=== PATIENT | female | born 1965 | race American Indian/Alaskan Native ===

== ENCOUNTER 2017-01-20 05:31 | Day surgery (SDC) | payer OTHER ==
[2017-01-20] MEDS ORDERED: Dextrose 5%-0.45% NaCl 1,000 ML IV SCH (06:00)
[2017-01-20] MEDS ORDERED: Sodium Chloride 0.9% 10 ML Syringe FLUSH PRN (06:00)
[2017-01-20] MEDS ORDERED: fentaNYL 100 MCG/2 ML SDV ONE (06:14)
[2017-01-20] MEDS ORDERED: Midazolam 1 MG/ML 2 ML SDV ONE (06:14)
[2017-01-20] MEDS ORDERED: Midazolam 1 MG/ML 2 ML SDV IV ONE ×7 (06:36→14:30)
[2017-01-20] MEDS ORDERED: fentaNYL 100 MCG/2 ML SDV IV ONE ×3 (06:36→14:30)
[2017-01-20 09:10] VITALS: BP 127/75
--- NOTE | 2017-01-20 11:58 | OR ---
DATE: 01/20/2017 PROCEDURE: Total colonoscopy. INSTRUMENT USED: CF-H180 AL Olympus video colonoscope. PREMEDICATIONS: Fentanyl 100 mcg intravenous, Versed 4 mg intravenous, nasal O2 cannula. 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 INDICATION: The patient with unexplained Hemoccult positive stools. Colonoscopic examination is done for detection of any polypoid lesions and removal, endoscopic hemostasis therapy if needed. DESCRIPTION OF PROCEDURE: Initial rectal exam was unremarkable. Rigid anoscopy was normal. The colonoscope was passed with ease. Scattered diverticula were noted in the distal left colon along with some deformity. The scope was passed with ease up to the ileocecal area. Photographs were taken of the normal-appearing cecum identified by appendiceal orifice and double-bulged ileocecal folds. No bleeding was noted from any of the visualized areas at the commencement of the examination. No stricture. No vascular ectasia. No large isolated ulcerations seen. No evidence of diffuse inflammatory bowel disease in the form of friability, contact bleeding, or ulcerations. No polyp or tumor mass identified. Probing the proximal sides of folds and flexures, using adequate distention clearing up the stool material, withdrawal of the scope was made. Cecum to rectum time was over 6 minutes. No bleeding was noted from any of the visualized areas at the completion of examination. IMPRESSION: Diverticulosis. The patient tolerated the procedure well. [facility] /[id number]
--- NOTE | 2017-01-20 14:01 | LETTER ---
01/20/2017 JEWELS Bianchi [facility] [address] [place] [address] RE: YENNY CLEMENTE : 1965 Dear Ms. Ramos: Yenny Nunez Vlad had colonoscopic examination done this morning and she tolerated the procedure well. I herewith send a copy of the endoscopy note and photographs for your review. Thank you. Sincerely, [facility] /[id number]
== END 2017-01-20 08:45 | disposition home or self-care (01) ==
LOC: DL.ENDO 05:31
PROVIDERS: ATTEND Internal Medicine Gastroenterology
DX: K57.30 Diverticulosis of large intestine without perforation or abscess without bleeding (principal); I10 Essential (primary) hypertension; E78.5 Hyperlipidemia, unspecified; E66.9 Obesity, unspecified; Z98.890 Other specified postprocedural states; Z91.09 Other allergy status, other than to drugs and biological substances; Z79.82 Long term (current) use of aspirin; Z79.899 Other long term (current) drug therapy
CPT/HCPCS: 45378; J2250; J3010; J7042

== ENCOUNTER 2018-11-19 07:24 | Day surgery (SDC) | payer BC, OTHER ==
[~2018-11-19 07:24] MED LIST: Lactated Ringers 1,000 ML IV SCH; Lidocaine 1% 30 ML SDV INJECT ONE; Sodium Chloride 0.9% 10 ML Syringe FLUSH PRN
[2018-11-19] MEDS ORDERED: Dexamethasone 4 MG/ML SDV IV ONE (07:25)
[2018-11-19] MEDS ORDERED: Propofol 200 MG/20 ML SDV IV ONE (07:25)
[2018-11-19] MEDS ORDERED: fentaNYL 100 MCG/2 ML SDV IV ONE (07:25)
[2018-11-19] MEDS ORDERED: Ketorolac 30 MG/ML SDV IVPUSH ONE (07:25)
[2018-11-19] MEDS ORDERED: Midazolam 1 MG/ML 2 ML SDV IV ONE (07:25)
[2018-11-19] MEDS ORDERED: Ondansetron 4 MG/2 ML SDV IV ONE (07:25)
[2018-11-19] MEDS ORDERED: Lidocaine 1% 30 ML SDV INJECT ONE (08:26)
[2018-11-19] MEDS ORDERED: Bupivacaine 0.5% 30 ML SDV INJECT ONE (08:26)
[2018-11-19] MEDS ORDERED: Acetaminophen/oxyCODONE 325-5 MG Tab PO PRN (09:09)
--- NOTE | 2018-11-19 09:12 | PCM.OPNOTE ---
- General Post-Op/Procedure Note Date of Surgery/Procedure: 11/19/18 Operative Procedure(s): left foot open plantar fasciectomy Pre Op Diagnosis: left foot plantar fasciitis Post-Op Diagnosis: cande Anesthesia Technique: Local, MAC Primary Surgeon: Arlen Ashley Anesthesia Provider: Jesus Gordillo Pathology: none EBL in mLs: 5 Complications: none Condition: Good Free Text/Narrative:: Pt tolerated procedure well and was transported to recovery with vascular status intact to left foot. Well padded L& U splint applied with foot in 90 degrees.
[2018-11-19 11:51] VITALS: BP 116/85; PULSE 86
--- NOTE | 2018-11-19 16:52 | OR ---
DATE: 11/19/2018 PREOPERATIVE DIAGNOSIS: Left foot plantar fasciitis. POSTOPERATIVE DIAGNOSIS: Left foot plantar fasciitis. PROCEDURE PERFORMED: Left foot open plantar fasciotomy. ANESTHESIA: Local MAC with preoperative local block of 10 mL of 1:1 mixture of 1% lidocaine plain and 0.5% Marcaine plain. TOURNIQUET TIME: 17 minutes, pneumatic ankle tourniquet. ESTIMATED BLOOD LOSS: Minimal. SPECIMEN: None. COMPLICATIONS: None. INDICATIONS: Yenny is a 53-year-old female who presents with left foot pain. I have seen her in the past for the left foot pain and we have tried multiple different conservative options with no relief. I did her right foot plantar fascia release back in 2016. She states she is well healed from that and has no issues. She would like the same procedure done on her left foot as this has been causing her pain for quite some time now. The patient voiced good understanding of proposed procedure and possible complications and elects to have surgery at this time. DESCRIPTION OF PROCEDURE: The patient was taken to the operating room lying in supine position. After adequate anesthesia induction as described above, the left foot was prepped and draped in usual sterile fashion. A pneumatic ankle tourniquet was inflated to 225 mmHg. Attention was then directed to the left foot instep just distal to the calcaneal fat pad where an approximately 3 cm linear incision was made to gain access to the central and medial band of the plantar fascia. Sharp and blunt dissection were performed down to the level of the plantar fascia band. An approximately 1 cm2 section of the central and medial band of the plantar fascia was released from the foot. The medial and central portion of the plantar fascia band were completely released. Inspection of the site revealed no further tightness in the area. The area was then flushed with copious amounts of sterile saline. Deep closure was completed with 3-0 Vicryl, and skin closure was completed with 4-0 nylon. The patient tolerated the procedure well and the area was dressed with Xeroform to the incision site, fluffs, Webril, and a well-padded L and U splint with the foot at 90 degrees. She was then transported to recovery with vital signs stable and vascular status intact to the left foot as noted by immediate hyperemia to all digits upon deflation of the ankle tourniquet. She was then discharged home when she met hospital discharge requirements. [facility] /[id number]
== END 2018-11-19 11:20 | disposition home or self-care (01) ==
LOC: DL.SDS 07:24
PROVIDERS: ATTEND Podiatrist
DX: M72.2 Plantar fascial fibromatosis (principal); I10 Essential (primary) hypertension; E78.5 Hyperlipidemia, unspecified; E66.9 Obesity, unspecified; Z68.29 Body mass index [BMI] 29.0-29.9, adult; Z88.6 Allergy status to analgesic agent; Z88.8 Allergy status to other drugs, medicaments and biological substances; Z87.891 Personal history of nicotine dependence; Z79.82 Long term (current) use of aspirin; Z79.899 Other long term (current) drug therapy; Z79.1 Long term (current) use of non-steroidal anti-inflammatories (NSAID); Z91.048 Other nonmedicinal substance allergy status
CPT/HCPCS: 28008; J1100; J1885; J2001; J2250; J2405; J2704; J3010; J3490; J7120

== ENCOUNTER 2021-12-21 21:15 | Emergency (ER) | payer OTHER, BC ==
[2021-12-21 23:50] VITALS: BP 137/92; PULSE 77
== END 2021-12-22 00:49 | disposition home or self-care (01) ==
LOC: DL.ED 21:15
DX: S93.402A Sprain of unspecified ligament of left ankle, initial encounter (principal); I10 Essential (primary) hypertension; E78.00 Pure hypercholesterolemia, unspecified; Z79.899 Other long term (current) drug therapy; Z88.8 Allergy status to other drugs, medicaments and biological substances; X50.0XXA Overexertion from strenuous movement or load, initial encounter; Y92.410 Unspecified street and highway as the place of occurrence of the external cause
CPT/HCPCS: 73610-LT; 99283

== ENCOUNTER 2023-11-13 22:55 | Emergency (ER) | payer BC, OTHER ==
[2023-11-13 23:16] VITALS: PULSE 90
[2023-11-13] MEDS: LORazepam 2 MG/ML SDV IVPUSH ONE (23:27)
[2023-11-13 23:28] LABS: BASOPHILS PERCENT AUTO 0.3 % (0.0-1.0); HEMATOCRIT 43.4 % (37.0-47.0); HEMOGLOBIN 14.3 g/dL (12.0-16.0); LYMPHOCYTES PERCENT AUTO 39.9 % (20.5-50.1); MEAN CORPUSCULAR HEMOGLOBIN 31.8 pg (27.0-34.0); MEAN CORPUSCULAR HGB CONC 32.9 g/dL (33.0-35.0); MEAN CORPUSCULAR VOLUME 96.7 fL (80-100); MONOCYTES PERCENT AUTO 12.4 % (2-8); NEUTROPHILS PERCENT AUTO 47.4 % (42.2-75.2); PLATELET COUNT,PLT 227 10^3/uL (150-450); RED BLOOD CELL COUNT 4.49 10^6/uL (4.2-5.4)
[2023-11-13 23:45] LABS: A/G RATIO 1.3; ANION GAP 13.7 mEq/L (7-13); BILIRUBIN TOTAL 0.2 mg/dL (0.2-1.0); BUN/CREATININE RATIO 16.8 (No establ ref range); CALCIUM 10.3 mg/dL (8.5-10.1); CREATININE 1.01 mg/dL (0.55-1.02); EST CRCL DRUG DOSING (CG) 56.14 mL/min; POTASSIUM,K 3.7 mmol/L (3.5-5.1); PROTEIN TOTAL,TP 7.2 g/dL (6.4-8.2)
[2023-11-14] MEDS: Morphine 4 MG/ML Syringe IVPUSH ONE (00:23)
[2023-11-14] MEDS: Aspirin 81 MG Tab.Chew PO ONE (00:23)
[2023-11-14 00:24] VITALS: BP 134/93
[2023-11-14] MEDS: Nitroglycerin 0.4 MG Tab.SL SL ONE (00:24)
[2023-11-14] MEDS: Heparin Sodium/0.45% NaCl 25,000 UNITS/500 ML BAG IV SCH (00:50)
[2023-11-14] MEDS: Sodium Chloride 0.9% 1,000 ML IV ONE (00:59)
[2023-11-14] MEDS: Heparin Sodium 5,000 Units/ML Vial IVPUSH ONE (01:00)
[2023-11-14 02:03] LABS: INR 0.9 (0.9-1.2); PROTHROMBIN TIME 9.8 SEC (9.0-12.0); PTT,PARTIAL THROMBOPLSTIN TIME 24.7 SEC (22.0-34.0)
[2023-11-14] MEDS: Nitroglycerin/D5W 25 MG/250 ML BOTTLE IV SCH (02:15)
[2023-11-14] MEDS: Nitroglycerin/D5W 25 MG/250 ML BOTTLE ONE (02:15)
== END 2023-11-14 03:15 ==
LOC: DL.ED 22:55
DX: I24.9 Acute ischemic heart disease, unspecified (principal); I10 Essential (primary) hypertension; E78.00 Pure hypercholesterolemia, unspecified; Z79.899 Other long term (current) drug therapy; Z79.82 Long term (current) use of aspirin; Z91.048 Other nonmedicinal substance allergy status
CPT/HCPCS: 36415; 71045; 80053; 83690; 84484; 85025; 85610; 85730; 93005; 93010; 96365; 96366; 96368; 96375; 99285; A9270; J1644; J2060; J2270; J2305; J7030

== ENCOUNTER 2024-02-06 13:18 | Emergency (ER) | payer BC, OTHER ==
[2024-02-06] MEDS ORDERED: Nitroglycerin 0.4 MG Tab.SL SL PRN (13:47)
[2024-02-06] MEDS: Aspirin 81 MG Tab.Chew PO ONE (13:55)
[2024-02-06 14:06] LABS: EOSINOPHILS PERCENT AUTO 3.3 % (1.0-3.0); HEMATOCRIT 40.8 % (37.0-47.0); HEMOGLOBIN 13.4 g/dL (12.0-16.0); LYMPHOCYTES PERCENT AUTO 34.4 % (20.5-50.1); MEAN CORPUSCULAR HEMOGLOBIN 32.3 pg (27.0-34.0); MEAN CORPUSCULAR HGB CONC 32.8 g/dL (33.0-35.0); MEAN CORPUSCULAR VOLUME 98.3 fL (80-100); MONOCYTES PERCENT AUTO 14.8 % (2-8); NEUTROPHILS PERCENT AUTO 46.5 % (42.2-75.2); PLATELET COUNT,PLT 232 10^3/uL (150-450); RED BLOOD CELL COUNT 4.15 10^6/uL (4.2-5.4); WHITE BLOOD CELL COUNT,WBC 4.2 10^3/uL (5.0-10.0)
[2024-02-06] MEDS: Sodium Chloride 0.9% 10 ML Syringe FLUSH PRN (14:10)
[2024-02-06 14:22] LABS: B-TYPE NATRIURETIC PEPTIDE,BNP 7 pg/ml (0-100)
[2024-02-06 14:26] LABS: PROTHROMBIN TIME 9.9 SEC (9.0-12.0); PTT,PARTIAL THROMBOPLSTIN TIME 25.4 SEC (22.0-34.0)
[2024-02-06 14:29] LABS: A/G RATIO 1.3; ALANINE AMINOTRANSFERASE,ALT 26 U/L (14-59); ALBUMIN 3.7 g/dL (3.4-5.0); ALKALINE PHOSPHATASE 35 U/L (46-116); ANION GAP 7.2 mEq/L (7-13); ASPARTATE AMNIOTRANSFERASE,AST 12 U/L (15-37); BILIRUBIN TOTAL 0.2 mg/dL (0.2-1.0); BLOOD UREA NITROGEN,BUN 13 mg/dL (7-18); BUN/CREATININE RATIO 17.1 (No establ ref range); CALCIUM 10.2 mg/dL (8.5-10.1); CARBON DIOXIDE,CO2 31 mmol/L (21-32); CHLORIDE,CL 107 mmol/L (98-107); CREATININE 0.76 mg/dL (0.55-1.02); EST CRCL DRUG DOSING (CG) 77.51 mL/min; GLUCOSE RANDOM 94 mg/dL (70-99); LIPASE 21 U/L (16-77); POTASSIUM,K 4.2 mmol/L (3.5-5.1); PROTEIN TOTAL,TP 6.6 g/dL (6.4-8.2); SODIUM,NA 141 mmol/L (136-145)
[2024-02-06 14:30] LABS: ESTIMATED GFR 90 mL/min (>=60)
[2024-02-06 15:09] VITALS: BP 118/83; PULSE 61
== END 2024-02-06 16:30 | disposition home or self-care (01) ==
LOC: DL.ED 13:18
DX: R07.89 Other chest pain (principal); J06.9 Acute upper respiratory infection, unspecified; I11.0 Hypertensive heart disease with heart failure; I50.9 Heart failure, unspecified; I25.10 Atherosclerotic heart disease of native coronary artery without angina pectoris; Z86.16 Personal history of COVID-19; Z79.899 Other long term (current) drug therapy; Z79.82 Long term (current) use of aspirin; Z91.048 Other nonmedicinal substance allergy status
CPT/HCPCS: 36415; 80053; 83690; 83735; 83880; 84484; 85025; 85610; 85730; 99285; A9270; J3490